=== PATIENT | male | born 1955 | race Caucasian/White ===

== ENCOUNTER 2017-11-12 11:13 | Emergency (ER) | payer BC ==
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
[2017-11-12] MEDS ORDERED: Acetaminophen/oxyCODONE 325-5 MG Tab ONE (12:20)
[2017-11-12] MEDS ORDERED: Cephalexin 500 MG Cap ONE (12:20)
[2017-11-12] MEDS ORDERED: Diphtheria,Pertussis(Acell),Tetanus Vaccine 0.5 ML SDV inactive IM ONE (12:21)
[2017-11-12] MEDS ORDERED: Diphtheria/Tetanus Toxoids,Adult (Td) 0.5 ML SDV ONE (12:40)
== END 2017-11-12 12:59 | disposition home or self-care (01) ==
LOC: LB.ED 11:13
DX: S68.111A Complete traumatic metacarpophalangeal amputation of left index finger, initial encounter (principal); Z23 Encounter for immunization; V94.9XXA Unspecified water transport accident, initial encounter
CPT/HCPCS: 90471; 90714; 99283-25; A9270-GY